=== PATIENT | female | born 1985 | race Two or more races ===

== ENCOUNTER → 2019-06-13 | Day surgery (SDC) | payer SELFPAY ==
[~2019-06-13] MED LIST: BUPIVACAINE-EPI 0.25%-1:200000 MPF 30 ML VIAL. INJ ONE; HYDROmorphone 2 MG/ML VIAL IV PRN; IV RINGERS,LACTATED 1000ML 1,000 ML IV SCH; LIDOCAINE 1% PF 2 ML VIAL. ID PRN; MORPHINE SULFATE 2 MG/ML VIAL. IV PRN; ONDANSETRON PF 4 MG/2 ML VIAL. IV PRN; PROCHLORPERAZINE 10 MG/2 ML VIAL. IV PRN; fentaNYL PF VIAL 100 MCG/2 ML VIAL IV PRN
== END ==
LOC: SURG 08:14
PROVIDERS: ATTEND Obstetrics & Gynecology
DX: Z53.8 Procedure and treatment not carried out for other reasons (principal)